=== PATIENT | female | born 1995 | race American Indian/Alaskan Native ===

== ENCOUNTER 2019-09-07 00:52 | Emergency (ER) | payer MEDICAID ==
[2019-09-07 04:29] LABS: HCG Qualitative,Urine Positive (Negative)
[2019-09-07 04:36] LABS: Bacteria,Urine 1+ /HPF (Negative); Bilirubin,Urine NEG (Negative); Blood,Urine NEG (Negative); Color,Urine Straw (Yellow); Mucus,Urine FEW /HPF; Protein,Urine <15 mg/dL mg/dL (Negative); Urobilinogen,Urine < 2.0 mg/dL (<2.0); WBC,Urine < 1.0 /HPF (0.0-6.0)
--- NOTE | 2019-09-07 04:37 | Emergency Department Report ---
HPI - General Chief Complaint: Abdominal Pain Time Seen by Provider: 09/07/19 04:09 - HPI HPI: 24-year-old -[place] female presents to the emergency department with a complaint of a 4 day history of lower abdominal pain, nausea and vomiting. She also has some low back pain that she says radiates from her abdomen. She denies any problems with bowel or bladder, numbness or paresthesias, or any neurological deficits. She has tried some ibuprofen and Tylenol for her symptoms without any relief. She denies any past medical history. However the patient does say that she recently was and was told around July 28 that she had or was having a miscarriage. Currently the patient denies any vaginal bleeding, dysuria, vaginal discharge. She does not have any current primary care physician or SOC[facility] MEDIA MARKETER. ED Past Medical Hx - Past Medical History Previous Medical History?: No - Surgical History Past Surgical History?: No - Social History Smoking Status: Current Every Day Smoker Substance Use Type: Marijuana - Medications Home Medications: Home Medications Medication Instructions Recorded Confirmed Last Taken Type Doxylamine Succinate/Vit B6 2 tab PO QHS PRN #20 tablet. 09/07/19 Unknown Rx [Mark Flores 10-10 mg Tablet] ED Review of Systems ROS: Stated complaint: ABD/BACK PAIN Other details as noted in HPI Comment: All other systems reviewed and negative Constitutional: denies: chills, fever Respiratory: denies: cough, shortness of breath Cardiovascular: denies: chest pain, palpitations Gastrointestinal: abdominal pain, nausea, vomiting Genitourinary: denies: dysuria, discharge Musculoskeletal: back pain. denies: arthralgia Neurological: denies: weakness, numbness Physical Exam - Physical Exam Vital Signs: Vital Signs 09/07/19 09/07/19 01:07 04:04 Temperature 98.6 F 98.2 F Pulse Rate 86 92 H Respiratory 18 16 Rate Blood Pressure 119/65 Blood Pressure 111/63 [Left] O2 Sat by Pulse 100 100 Oximetry Physical Exam: GENERAL: The patient is well-developed well-nourished. HEENT: Normocephalic. Atraumatic. Patient has moist mucous membranes. EYES: Extraocular motions are intact. NECK: Supple. Trachea is midline. CHEST/LUNGS: Clear to auscultation. There is no respiratory distress noted. HEART/CARDIOVASCULAR: Regular. There is no tachycardia. There is no murmur. ABDOMEN: Abdomen is soft. Unable to reproduce abdominal tenderness to palpation. No guarding. Patient has normal bowel sounds. There is no abdominal distention. SKIN:Skin is warm and dry. . NEURO: The patient is awake, alert, and oriented. The patient is cooperative. The patient has no focal neurologic deficits. Normal speech. MUSCULOSKELETAL: There is no tenderness or deformity. There is no limitation range of motion. There is no evidence of acute injury. BACK: There is bilateral paraspinal lumbar tenderness to palpation but no midline tenderness to palpation, step-off or deformity. ED Course Vital Signs 09/07/19 09/07/19 01:07 04:04 Temperature 98.6 F 98.2 F Pulse Rate 86 92 H Respiratory 18 16 Rate Blood Pressure 119/65 Blood Pressure 111/63 [Left] O2 Sat by Pulse 100 100 Oximetry ED Medical Decision Making - Lab Data Result diagrams: 09/07/19 04:19 09/07/19 04:19 - Medical Decision Making This patient presents with a four-day history of some lower abdominal pain with radiation towards the back, as well as some nausea and vomiting. She originally said that she had a miscarriage around July 28. However it appears that the patient is currently still . Urine test was positive. An ultrasound was sent and the results are not back yet but she appears to have a live intrauterine at 14 weeks. She will be started on vitamins. She has been given Diclegis for nausea and vomiting and she has been given multiple referrals for local [facility]IA MARKETER groups. The patient will return to the emergency Department with any worsening of her symptoms or any acute distress. There has been no further nausea or vomiting while in the emergency department. Her vital signs have been stable throughout her ED course thus far. - Differential Diagnosis , food poisoning, colitis Critical Care Time: No Critical care attestation.: If time is entered above; I have spent that time in minutes in the direct care of this critically ill patient, excluding procedure time. ED Disposition Clinical Impression: Qualifiers: Weeks of gestation: 14 weeks Qualified Code(s): Z3A.14 - 14 weeks gestation of Abdominal pain Qualifiers: Abdominal location: lower abdomen, unspecified Qualified Code(s): R10.30 - Lower abdominal pain, unspecified Nausea & vomiting Qualifiers: Vomiting type: unspecified Vomiting Intractability: non-intractable Qualified Code(s): R11.2 - Nausea with vomiting, unspecified Disposition: DC-01 TO HOME OR SELFCARE Is pt being admited?: No Condition: Stable Instructions: (ED), Acute Nausea and Vomiting (ED), Abdominal Pain (ED) Additional Instructions: Please follow up with a SOCIAL MEDIA MARKETER in the next few days. I am starting you on vitamins. Please return to the emergency Department with any worsening of your symptoms, development of vaginal bleeding, or with any acute distress. I have given you multiple referrals for local [facility]IA [facility]ETER groups. Prescriptions: Doxylamine Succinate/Vit B6 [Mark Flores 10-10 mg Tablet] 2 tab PO QHS PRN #20 tablet. PRN Reason: Nausea Referrals: PRIMARY CARE, [Primary Care Provider] - 3-5 Days [facility] [Provider Group] - 3-5 Days [facility] [Provider Group] - 3-5 Days [facility] [Provider Group] - 3-5 Days Forms: Work/School Release Form(ED) Time of Disposition: 05:30
[2019-09-07 05:06] LABS: Basophils % (Auto) 0.2 % (0.0-1.8); Hematocrit 32.8 % (30.3-42.9); Hemoglobin 11.4 gm/dl (10.1-14.3); Lymphocytes # (Auto) 1.9 K/mm3 (1.2-5.4); Lymphocytes % (Auto) 21.8 % (13.4-35.0); Mean Corpuscular HGB Conc 35 % (30-34); Mean Corpuscular Volume 95 fl (79-97); Monocytes # (Auto) 0.3 K/mm3 (0.0-0.8); Monocytes % (Auto) 3.6 % (0.0-7.3); Platelet Count 294 K/mm3 (140-440); Red Blood Count 3.45 M/mm3 (3.65-5.03); Red Cell Distribution Width 13.4 % (13.2-15.2)
[2019-09-07 05:25] LABS: Alanine Aminotransferase 9 units/L (7-56); Albumin 4.6 g/dL (3.9-5); BUN/Creatinine Ratio 26; Blood Urea Nitrogen 13 mg/dL (7-17); Hemolysis Index 0
--- NOTE | 2019-09-07 06:19 | Ultrasound Report ---
ULTRASOUND OBSTETRIC Indication: abd/pelvic pain, Findings: There is a single intrauterine . BPD = 2.4 cm = 14 weeks, 1 day(s). Head circumference = 9.3 cm = 14 weeks, 2 day(s). Abdominal circumference = 8.5 cm = 14 weeks, 5 day(s). Femur length = 1.7 cm = 15 weeks, 0 day(s). Overall estimated sonographic age = 14 weeks, 4 day(s). heart rate is 166 beats per minute. position is breech. Cervix appears closed. Cervix measures 3.4 cm in length Placenta is posterior and grade 0 . Amniotic fluid volume appears normal. Impression: 1. Single living intrauterine with estimated sonographic age of 14 weeks, 4 day(s). 2. No sonographic abnormality identified. Signer Name: Jacob Brooks MD Signed: 09/07/2019 6:15 AM Workstation Name: [id number]
[2019-09-07 07:14] VITALS: BP 111/65
== END 2019-09-07 07:15 ==
LOC: ED 00:52
DX: O21.8 Other vomiting complicating pregnancy (principal); O26.891 Other specified pregnancy related conditions, first trimester; R10.30 Lower abdominal pain, unspecified; Z3A.14 14 weeks gestation of pregnancy; F17.200 Nicotine dependence, unspecified, uncomplicated; Z79.899 Other long term (current) drug therapy
CPT/HCPCS: 36415; 76805; 80053; 81001; 81025; 84702; 85025